=== PATIENT | male | born 1960 | race Caucasian/White ===

== ENCOUNTER 2025-10-26 07:53 | Outpatient (CLI) | payer MEDICARE, MEDICAID ==
[2025-10-26 08:41] LABS: Calc. Creatinine Clearance 0.0 mL/min (70-130)
[2025-10-26 09:37] LABS: Glucose, Urine (Dipstick) Negative (Negative); Leukocyte Negative (Negative); Protein, Urine (Dipstick) Negative (Neg-Trace); Specific Gravity, Urine Greater/Equal 1.030 (1.005-1.030)
[2025-10-26 09:46] LABS: RBC/HPF 0-3 HPF (0-3); WBC/HPF 0-3 HPF (0-3)
[2025-10-26 09:47] LABS: Bacteria/HPF 1+ HPF (None Seen)
== END 2025-10-26 07:54 | disposition home or self-care (01) ==
LOC: BURCT 07:53
PROVIDERS: ATTEND Urology
DX: Z01.818 Encounter for other preprocedural examination (principal); R31.29 Other microscopic hematuria; N28.1 Cyst of kidney, acquired; N28.89 Other specified disorders of kidney and ureter
CPT/HCPCS: 36415; 74178; 81001; 82565